=== PATIENT | female | born 1990 | race Caucasian/White ===

== ENCOUNTER 2017-02-18 20:05 | Emergency (ER) | payer BC ==
--- NOTE | 2017-02-18 20:46 | EDM.PDOC ---
ED HPI GENERAL MEDICAL PROBLEM - General Chief Complaint: Lower Extremity Injury/Pain Stated Complaint: POSS BROKEN LT PINKY TOE Time Seen by Provider: 02/18/17 20:30 Source of Information: Reports: Patient, Family History Limitations: Reports: No Limitations - History of Present Illness INITIAL COMMENTS - FREE TEXT/NARRATIVE: Rachael was playing with children in the household this pm when she slipped and fell, jamming L 5th toe into the door jam. There is residual swelling and tenderness at the IP joint of the 5th toe. The remainder of the L foot is asx. She has taken no meds. - Related Data Allergies Allergy/AdvReac Type Severity Reaction Status Date / Time No Known Allergies Allergy Verified 02/18/17 20:29 Home Meds: Home Meds NK [No Known Home Meds] 02/18/17 [History] Social & Family History - Tobacco Use Smoking Status *Q: Never Smoker - Alcohol Use Days Per Week of Alcohol Use: 0 - Recreational Drug Use Recreational Drug Use: No Review of Systems - Review of Systems Review Of Systems: ROS reveals no pertinent complaints other than HPI. ED EXAM, GENERAL - Physical Exam Exam: See Below Exam Limited By: No Limitations General Appearance: Alert, WD/WN, No Apparent Distress Head: Atraumatic, Normocephalic Neck: Normal Inspection, Supple, Non-Tender, Full Range of Motion Respiratory/Chest: Lungs Clear Cardiovascular: Regular Rate, Rhythm Back Exam: Normal Inspection Extremities: Joint Swelling (L 5th IP joint), Limited Range of Motion (L 5th IP joint) Neurological: Alert, Oriented, CN II-XII Intact, No Motor/Sensory Deficits Psychiatric: Normal Affect, Normal Mood Skin Exam: Warm, Dry, Intact Lymphatic: No Adenopathy Course - Vital Signs Text/Narrative:: Inspection of L 5th toe is suspicious for a minor fx or sprain. Patient deferred x rays, and was instructed in dimitris taping for comfort, RICE, and NSAIDs for pain. Departure - Departure Time of Disposition: 20:45 Disposition: Home, Self-Care 01 Condition: Fair Clinical Impression: Sprain of toe, fifth, left Qualifiers: Encounter type: initial encounter Qualified Code(s): S93.505A - Unspecified sprain of left lesser toe(s), initial encounter - Discharge Information Referrals: Rommel Logan MD [Primary Care Provider] - Forms: ED Department Discharge - Problem List & Annotations (1) Sprain of toe, fifth, left SNOMED Code(s): 155128436 Code(s): S93.505A - UNSPECIFIED SPRAIN OF LEFT LESSER TOE(S), INITIAL ENCOUNTER Status: Acute Annotation/Comment:: Probable sprain of L 5th toe. She manages with NSAIDs, dimitris taping, and RICE for comfort. Wt bearing permitted. Qualifiers: Encounter type: initial encounter Qualified Code(s): S93.505A - Unspecified sprain of left lesser toe(s), initial encounter - Problem List Review Problem List Initiated/Reviewed/Updated: Yes - Assessment/Plan Plan: Follow up with PCP if needed.
[2017-02-18 21:27] VITALS: BP 127/72
== END 2017-02-18 20:55 | disposition home or self-care (01) ==
LOC: FB.ED 20:05
DX: S93.505A Unspecified sprain of left lesser toe(s), initial encounter (principal); W01.0XXA Fall on same level from slipping, tripping and stumbling without subsequent striking against object, initial encounter
CPT/HCPCS: 99283